=== PATIENT | female | born 1970 | race African-American/Black ===

== ENCOUNTER 2018-04-17 19:03 | Emergency (ER) | payer OTHER ==
[2018-04-17] MEDS: METHYLPREDNISOLONE 125 MG INJ IV (19:27)
[2018-04-17] MEDS: TERBUTALINE 1 MG/ML INJ SC ×3 (19:27→22:44)
[2018-04-17] MEDS: ALBUTEROL 0.5% (NEB) 2.5 MG/0.5 ML AMP INH ×2 (19:32→21:45)
[2018-04-17] MEDS: MAGNESIUM SULFATE 2 GM/50 ML 50 ML IVPB ×2 (21:34→22:44)
== END 2018-04-17 22:51 | disposition home or self-care (01) ==
LOC: E/R 19:03
DX: J45.901 Unspecified asthma with (acute) exacerbation (principal); E66.01 Morbid (severe) obesity due to excess calories; Z68.43 Body mass index [BMI] 50.0-59.9, adult; Z79.84 Long term (current) use of oral hypoglycemic drugs; Z87.891 Personal history of nicotine dependence
CPT/HCPCS: 94644; 94645; 96372; 96374; 99284-25